=== PATIENT | male | born 1970 | race Hispanic/Latino ===

== ENCOUNTER 2016-08-25 06:12 | Emergency (ER) | payer SELFPAY ==
[2016-08-25] MEDS ORDERED: HYDROcodone/Acetaminophen 10/325 mg Tablet ONE (06:32)
[2016-08-25] MEDS ORDERED: AMOXicillin 250 MG CAP ONE (06:32)
== END 2016-08-25 06:38 | disposition home or self-care (01) ==
LOC: BURERS 06:12
DX: K03.81 Cracked tooth (principal); I10 Essential (primary) hypertension
CPT/HCPCS: 99282

== ENCOUNTER 2018-07-17 22:25 | Emergency (ER) | payer SELFPAY ==
[2018-07-17 23:07] LABS: #Basophils 0.1 thou/uL (0.0-0.2); #Eosinphils 1.2 thou/uL (0.0-0.7); #Lymphocytes 2.8 thou/uL (1.20-3.40); #Monocytes 0.8 thou/uL (0.11-0.59); %Basophils 0.5 % (0.0-1.0); %Eosinophils 10.2 % (0.0-10.0); %Lymphocytes 23.8 % (21.0-51.0); %Monocytes 6.7 % (0.0-10.0); %Neutrophils 58.8 % (42.0-75.0); Hemoglobin 15.1 g/dL (14.0-18.0); Mean Corpuscular HGB CONC 32.7 g/dL (32.0-36.0); Mean Corpuscular Hemoglobin 29.1 pg (27.0-31.0); Mean Platelet Volume 7.7 fL (7.4-10.4); Platelet Count 224 thou/uL (130-400); Red Blood Cell (RBC) Count 5.18 mill/uL (4.70-6.10); White Blood Cell (WBC) Count 11.9 thou/uL (4.8-10.8)
[2018-07-17 23:13] LABS: Bilirubin Negative (Negative); Blood, Urine Negative (Negative); Clarity Clear (Clear); Glucose, Urine (Dipstick) Negative (Negative); Leukocyte Negative (Negative); Nitrite Negative (Negative); Protein, Urine (Dipstick) Negative (Neg-Trace); Specific Gravity, Urine 1.015 (1.005-1.030)
[2018-07-17 23:19] LABS: ALT (SGPT) 26 U/L (8-55); AST (SGOT) 17 U/L (5-34); Albumin 4.4 g/dL (3.5-5.0); Alkaline Phosphatase 76 U/L (40-150); Anion Gap 16 mmol/L (10-20); BUN (Urea Nitrogen) 11 mg/dL (8.9-20.6); Bilirubin, Total 0.5 mg/dL (0.2-1.2); Calc. Creatinine Clearance 0 mL/min (70-130); Calcium 9.5 mg/dL (7.8-10.44); Carbon Dioxide 23 mmol/L (22-29); Chloride 102 mmol/L (98-107); Estimated GFR-MDRD 60; Globulin 3.2 g/dL (2.4-3.5); Glucose 118 mg/dL (70-105); Lipase 37 U/L (8-78); Potassium 3.8 mmol/L (3.5-5.1); Protein, Total 7.6 g/dL (6.0-8.3); Sodium 137 mmol/L (136-145)
[2018-07-18] MEDS ORDERED: Ketorolac Tromethamine 30 MG/ML VIAL ONE (00:27)
--- NOTE | 2018-07-18 08:33 | CT ---
PRELIMINARY REPORT/[facility]/EMERGENCY AFTER HOURS PROCEDURE: EXAM: CT Abdomen and Pelvis With Contrast EXAM DATE/TIME: 07/17/2018 11:37 PM CLINICAL HISTORY: 47 years old, male; Abdominal pain; Generalized; Patient HX: PT states lower abd pain since sat TECHNIQUE: Imaging protocol: Axial computed tomography images of the abdomen and pelvis with intravenous contras t. Coronal and sagittal reformatted images were created and reviewed. Radiation optimization: All CT scans at this facility use at least one of these dose optimization lisha hniques: automated exposure control; mA and/or kV adjustment per patient size (includes targeted exams where dose is matched to clinical indication); or iterative reconstruction. Contrast material: ISOVUE; Contrast volume: 97 ml; Contrast route: RT FA; COMPARISON: No relevant prior studies available. FINDINGS: ABDOMEN: Liver: Normal attenuation. No mass. Gallbladder and bile ducts: Extensive cholelithiasis with some gallstones in the gallbladder neck. No definitive CT evidence of acute cholecystitis. Pancreas: Normal. No ductal dilation. Spleen: No splenomegaly. No masses Adrenals: Normal. No mass. Kidneys and ureters: Normal. No hydronephrosis. Stomach and bowel: The stomach is decompressed. Appendix: No evidence of appendicitis. PELVIS: Bladder: Mild bladder wall thickening. Reproductive: Unremarkable as visualized. ABDOMEN and PELVIS: Intraperitoneal space: No free air. No significant fluid collection. Bones/joints: Mild degenerative change of the L5-S1 intervertebral discs. Normal osteoarthritis of the hips. Soft tissues: Unremarkable. Vasculature: Normal. No abdominal aortic aneurysm. Lymph nodes: No enlarged lymph nodes. IMPRESSION: Extensive cholelithiasis without definitive CT evidence of acute cholecystitis. Mild bladder wall thickening possibly representing cystitis. Thank you for allowing us to participate in the care of your patient. Dictated and Authenticated by: Juan Stewart MD 07/18/2018 12:12 AM Central Time ([place] & [place]) FINAL REPORT CT ABDOMEN AND PELVIS WITH CONTRAST: Date: 07/17/[address] of the abdomen and pelvis was done with IV contrast only. Comparison was made with the prio r study dated 08/18/04. FINDINGS: The lung bases are clear, except for some dependent atelectasis. The liver, spleen, pancreas, and adr enal glands appear normal. The gallbladder contains multiple gallstones within it, including in the n triny. There is no thickening of the wall or surrounding inflammatory change. Thus, there is no CT evid ence of cholecystitis. The kidneys show no mass or hydronephrosis. The bowel shows no distention. There is no bowel wall thickening or inflammatory change around it. No free air or free fluid seen. The appendix appears normal. CT of the pelvis was mainly remarkable for some mild concentric thickening of the urinary bladder wal l. This can sometimes be seen in cystitis. Sometimes it is due to underdistention, though it seems di stended adequately on these images. Some degenerative changes are seen in the lower lumbar spine, par ticularly at the lumbosacral junction. IMPRESSION: 1. Numerous gallstones without CT evidence of cholecystitis. 2. Not mentioned above, but noticed was some mild prominence of the rugal folds of the stomach. The findings are not prominent enough to diagnose gastritis, and my understanding is that the patient's p ain is low abdomen. 3. Mild thickening of the urinary bladder wall. The possibility of cystitis is raised. Report in agreement with preliminary reading by Gabriela. POS: HOME
== END 2018-07-18 00:35 | disposition short-term general hospital (02) ==
LOC: BURERS 22:25
DX: K81.0 Acute cholecystitis (principal); I10 Essential (primary) hypertension; Z79.899 Other long term (current) drug therapy
CPT/HCPCS: 74177; 80053; 81003; 83690; 84484; 85025; 93005; 96374; J1885

== ENCOUNTER 2021-09-01 18:05 | Emergency (ER) | payer MEDICAID, SELFPAY ==
[2021-09-01] MEDS ORDERED: Bacitracin 1 PK ONE (18:47)
== END 2021-09-01 18:56 | disposition home or self-care (01) ==
LOC: BURERS 18:05
DX: S61.217A Laceration without foreign body of left little finger without damage to nail, initial encounter (principal); I10 Essential (primary) hypertension; W26.8XXA Contact with other sharp object(s), not elsewhere classified, initial encounter
CPT/HCPCS: 12001

== ENCOUNTER 2023-08-30 17:00 | Outpatient (CLI) | payer OTHER | END 2023-08-30 17:01 | disposition home or self-care (01) | LOC: BURRAD 17:00 | PROVIDERS: ATTEND Physician Assistant | DX: M25.561 Pain in right knee (principal) ==

== ENCOUNTER 2025-01-23 18:25 | Emergency (ER) | payer OTHER, SELFPAY ==
[2025-01-23 18:50] LABS: #Basophils 0.1 thou/uL (0.0-0.2); #Eosinophils 0.3 thou/uL (0.0-0.7); #Lymphocytes 4.0 thou/uL (1.20-3.40); #Monocytes 0.9 thou/uL (0.11-0.59); #Neutrophils 4.9 thou/uL (1.40-6.50); %Basophils 1.0 % (0.0-1.0); %Eosinophils 2.7 % (0.0-10.0); %Lymphocytes 39.4 % (21.0-51.0); %Monocytes 8.9 % (0.0-10.0); %Neutrophils 48.0 % (42.0-75.0); Hematocrit 42.8 % (42.0-52.0); Hemoglobin 13.9 g/dL (14.0-18.0); Mean Corpuscular Hemoglobin 28.6 pg (27.0-31.0); Mean Corpuscular Volume 87.9 fl (78.0-98.0); Platelet Count 314 10x3/uL (130-400); Red Blood Cell (RBC) Count 4.87 mill/uL (4.70-6.10); White Blood Cell (WBC) Count 10.2 10x3/uL (4.8-10.8)
[2025-01-23 19:10] LABS: ALT (SGPT) 30 U/L (Less than 45); AST (SGOT) 32 U/L (11-34); Albumin 4.6 g/dL (3.1-4.5); Alkaline Phosphatase 66 U/L (40-110); Anion Gap 17 mmol/L (10-20); BUN (Urea Nitrogen) 12 mg/dL (8.4-25.7); Bilirubin, Total 0.5 mg/dL (0.3-1.2); Calc. Creatinine Clearance 0 mL/min (70-130); Calcium 9.6 mg/dL (7.8-10.44); Carbon Dioxide 23 mmol/L (22-29); Chloride 104 mmol/L (98-107); Globulin 2.9 g/dL (2.4-3.5); Glucose 111 mg/dL (70-105); Potassium 3.6 mmol/L (3.5-5.1); Sodium 140 mmol/L (136-145)
== END 2025-01-23 19:42 | disposition home or self-care (01) ==
LOC: BURERS 18:25
DX: J22 Unspecified acute lower respiratory infection (principal); R06.2 Wheezing; I10 Essential (primary) hypertension; E11.9 Type 2 diabetes mellitus without complications; Z79.84 Long term (current) use of oral hypoglycemic drugs; Z79.899 Other long term (current) drug therapy
CPT/HCPCS: 36415; 71046; 80053; 85025; 87081; 87428; 87430